=== PATIENT | male | born 1965 | race Caucasian/White ===

== ENCOUNTER 2020-07-16 23:01 | Emergency (ER) | payer BC ==
[~2020-07-16 23:01] MED LIST: ASPIRIN81 M1 PO; CIPRO500 MG PO; CIPROFLOXACIN500 MG PO; FLAGYL500 MG PO; LOMOTIL 0.025 M1 TA1 PO; NKHM; PHENERGAN25 M1 PO; VICODIN 5/500 505 MG PO; ZOFRAN8 M1 PO
[2020-07-16 23:07] VITALS: BP 173/98
[2020-07-16] MEDS ORDERED: AUGMENTIN 875875 MG PO (23:39)
== END 2020-07-16 23:49 | disposition left against medical advice (07) ==
LOC: ED 23:01
DX: H66.91 Otitis media, unspecified, right ear (principal); J02.9 Acute pharyngitis, unspecified; R51.9 Headache, unspecified; Z79.2 Long term (current) use of antibiotics; Z79.899 Other long term (current) drug therapy; Z79.82 Long term (current) use of aspirin; Z98.890 Other specified postprocedural states

== ENCOUNTER 2020-09-19 18:13 | Emergency (ER) | payer BC ==
[~2020-09-19] VITALS: Wt 81.6 kg
[~2020-09-19 18:13] MED LIST changes: +AUGMENTIN 875875 MG PO
[2020-09-19 18:21] VITALS: BP 141/73
[2020-09-19 18:52] LABS: HEMATOCRIT 44.7 % (42.0-52.0); MEAN CELL VOLUME 88.5 fl (80.0-94.0); MEAN CORPUSCULAR HGB 29.7 pg (27.0-31.0); MEAN CORPUSCULAR HGB CONC 33.6 g/dl (33.0-37.0); MEAN PLATELET VOLUME 9.4 fl (9.6-12.3); PLATELET COUNT AUTOMATED 318 10*3/uL (130-400); RED BLOOD COUNT 5.05 10*6/uL (4.50-5.90); WHITE BLOOD COUNT 15.7 10*3/uL (4.8-10.8)
[2020-09-19 19:07] LABS: ALBUMIN 3.9 gm/dl (3.1-4.5); ALKALINE PHOSPHATASE 83 U/L (45-117); BUN 20 mg/dl (7-24); CHLORIDE 109 mmol/L (98-107); CREATININE 1.17 mg/dL (0.70-1.30); POTASSIUM 4.3 mmol/L (3.5-5.1); SGOT/AST 22 IU/L (3-35); SGPT/ALT 44 U/L (12-78); SODIUM 141 mmol/L (136-145); TOTAL PROTEIN 7.6 gm/dL (6.4-8.2)
[2020-09-19 19:20] LABS: TOTAL CELLS COUNTED 100 #CELLS
[2020-09-19 19:21] LABS: BURR CELLS FEW; OVALOCYTES FEW; PLATELET SUFFICIENCY NORMAL (NORMAL)
[2020-09-19 19:54] LABS: BILIRUBIN Negative (Negative); BLOOD 3+ (Negative); CLARITY Cloudy (Clear); COLOR Yellow (Yellow); GLUCOSE Negative (Negative); KETONE 1+ (Negative); LEUKO ESTERASE Trace (Negative); NITRITE Negative (Negative)
[2020-09-19 20:12] LABS: RBC 51-100 rbc/hpf (0-2)
[2020-09-19 20:13] LABS: MUCOUS 4+
[2020-09-19] MEDS ORDERED: Motrin,Rufen800 MG PO (21:50)
[2020-09-19] MEDS ORDERED: HYDROCODONE-AC1 EAC1 PO (21:50)
[2020-09-19] MEDS ORDERED: ZOFRAN4 MG PO (21:50)
[2020-09-19] MEDS ORDERED: FLOMAX0.4 MG PO (21:50)
== END 2020-09-19 22:35 | disposition home or self-care (01) ==
LOC: ED 18:13
PROVIDERS: Physician Assistant
DX: N20.1 Calculus of ureter (principal); Z79.899 Other long term (current) drug therapy; Z79.82 Long term (current) use of aspirin

== ENCOUNTER → 2021-10-18 | Day surgery (SDC) | payer BC ==
[~2021-10-18] VITALS: Ht 170.1 cm; Wt 81.6 kg
[~2021-10-18] MED LIST changes: +CALTRATE 600 P1 EACH PO; +CENTRUM SILVER1 EACH PO; +FLOMAX0.4 MG PO; +GOOD NEIGHBOR M25 M1 PO; +HYDROCODONE-AC1 EAC1 PO; +LIPITOR40 MG PO; +Motrin,Rufen800 MG PO; +PROTONIX40 MG PO; +ZESTRIL10 MG PO; +ZOFRAN4 MG PO
[2021-10-18 07:00] VITALS: BP 142/84
[2021-10-18 08:14] VITALS: BP 137/70
[2021-10-18 08:30] VITALS: BP 122/74
[2021-10-18 08:44] VITALS: BP 123/83
== END | disposition home or self-care (01) ==
LOC: SDC 10-15 12:30
PROVIDERS: ATTEND Surgery
DX: Z12.11 Encounter for screening for malignant neoplasm of colon (principal); K29.50 Unspecified chronic gastritis without bleeding; K21.9 Gastro-esophageal reflux disease without esophagitis; K57.32 Diverticulitis of large intestine without perforation or abscess without bleeding; K57.30 Diverticulosis of large intestine without perforation or abscess without bleeding; Z86.73 Personal history of transient ischemic attack (TIA), and cerebral infarction without residual deficits; I10 Essential (primary) hypertension; Z98.890 Other specified postprocedural states; Z90.49 Acquired absence of other specified parts of digestive tract; Z90.89 Acquired absence of other organs; Z79.899 Other long term (current) drug therapy